=== PATIENT | female | born 1990 | race Two or more races ===

== ENCOUNTER 2024-09-01 12:54 | Emergency (ER) | payer MEDICAID, OTHER ==
[~2024-09-01] VITALS: Ht 157.5 cm; Wt 96.9 kg
--- NOTE | 2024-09-01 14:29 | ED.PDOC ---
Eye-HPI HPI Comments 34 year old female with no medical presents for atraumatic right jaw pain Onset yesterday while eating bread Complains of tenderness with opening and closing of the jaw No associated symptoms Denies tobacco alcohol or drugs denies history of HPV in the mouth and denies any oral lesions Chief Complaint: Jaw Pain Time Seen by MD: 14:03 Primary Care Provider: SUZAN Reviewed Notes: Nurses Notes, Medications, Allergies Allergies: Coded Allergies: Sulfa Antibiotics (Verified Allergy, Unknown, 09/01/24) Home Meds Active Scripts Naproxen (Naproxen) 500 Mg Tab, 500 MG PO BIDPC for 14 Days, #28 TAB 0 Refills Prov:BOUCHRA RAPP SLASHER TENDER 09/01/24 Methocarbamol (Methocarbamol) 500 Mg Tab, 500 MG PO Q6HPRN PRN for 30 Days, #120 TAB 0 Refills Prov:BOUCHRA RAPP SLASHER TENDER 09/01/24 Information Source: Patient Mode of Arrival: Ambulatory Past Medical History PAST MEDICAL HISTORY: Denies Surgical History: Denies all surgeries STRAINER TENDER History: No Pertinent STRAINER TENDER History Family History Family History: Reviewed,noncontributory to illness, No family hx of Cancer, No family hx of DM, No family hx of Heart latrell, No family hx of HTN, No family hx ofKidney latrell, No family hx of Liver latrell, No family hx of Lung latrell, No family hx of Stroke Social History Smoker: Non-Smoker Alcohol: Denies ETOH Use Drugs: Denies Drug Use Lives In: Home All Other Systems: Reviewed and Negative (Per HPI) Physical Exam General Appearance: No Apparent Distress, Normal HEENT: Normal ENT Inspection, Pharynx Normal, TMs Normal Neck: Full Range of Motion, Non-Tender, Normal, Normal Inspection Respiratory: Chest Non-Tender, Lungs Clear, No Accessory Muscle Use, No Respiratory Distress, Normal Breath Sounds Cardiovascular: No Edema, No JVD, No Murmur, No Gallop, Normal Peripheral Pulses, Regular Rate/Rhythm Breast Exam: Deferred Gastrointestinal: No Organomegaly, Non Tender, No Pulsatile Mass, Normal Bowel Sounds, Soft Genitalia: Deferred Pelvic: Deferred Rectal: Deferred Extremities: No calf tenderness, Normal capillary refill, Normal inspection, Normal range of motion, Non-tender, No pedal edema Musculoskeletal : Apperance: Normal Neurologic: Alert, wool cleaner II-XII nml as Tested, No Motor Deficits, Normal Affect, Normal Mood, No Sensory Deficits Cerebellar Function: Normal Reflexes: Normal Skin: Dry, Normal Color, Warm Lymphatic: No Adenopathy Was a procedure done? Was a procedure done?: No EENT DIFF Eye: Other X-Ray, Labs, Meds, VS Vital Signs Date Time Temp Pulse Resp B/P (MAP) Pulse Ox O2 Delivery O2 Flow Rate FiO2 09/01/24 15:00 74 18 99 Room Air 09/01/24 15:00 98.2 74 18 120/62 (81) 99 98.2 09/01/24 13:18 98.1 75 18 110/40 (63) 97 X-Ray, Labs, Meds, VS Comment Findings are consistent with a TMJ syndrome. Take medications as prescribed. Advised warm compresses. Massage the affected side as needed. Recommended mouth guard and to follow up with PCP Return precautions discussed Time of 1ST Reevaluation: 15:30 Reevaluation 1ST: Improved Patient Education/Counseling: Diagnosis, Treatment Family Education/Counseling: Diagnosis, Treatment Departure 1 Departure Time of Disposition: 15:35 Impression: Primary Impression: TMJ (temporomandibular joint syndrome) Disposition: HOME / SELF CARE / HOMELESS Condition: Stable e-Prescriptions Naproxen (Naproxen) 500 Mg Tab 500 MG PO BIDPC for 14 Days, #28 TAB 0 Refills Prov: BOUCHRA RAPP NP 09/01/24 Methocarbamol (Methocarbamol) 500 Mg Tab 500 MG PO Q6HPRN PRN for 30 Days, #120 TAB 0 Refills Prov: BOUCHRA RAPP NP 09/01/24 Discharged With: Self Critical Care Note Critical Care Time?: No Stability Stability form required: No Heart Score Heart Score: Heart Score Response (Comments) Value History N/A 0 EKG N/A 0 Age N/A 0 Risk Factors N/A 0 Troponin N/A 0 Total 0 BOUCHRA RAPP NP Sep 01, 2024 14:29
[2024-09-01 15:00] VITALS: BP 120/62; PULSE 74; RESP 18; TEMP 98.2; O2SAT 99
--- NOTE | 2024-09-01 15:28 | DVH ---
CLINICAL INDICATION: Right TMJ pain TECHNIQUE: XY MANDIBLE COMPLETE MIN 4V Comparison: None FINDINGS/IMPRESSION: : There is no evidence of acute fracture or dislocation. Soft tissues are unremarkable.
[2024-09-01] MEDS ORDERED: NAPR-746 PO (15:36)
[2024-09-01] MEDS ORDERED: METH-1181 PO (15:36)
== END 2024-09-01 15:45 | disposition home or self-care (01) ==
LOC: ER 12:54
DX: M26.601 Right temporomandibular joint disorder, unspecified (principal); Z88.2 Allergy status to sulfonamides; Z79.899 Other long term (current) drug therapy
CPT/HCPCS: 70110